=== PATIENT | female | born 2000 | race Caucasian/White ===

== ENCOUNTER 2020-06-10 19:27 | Emergency (ER) | payer OTHER ==
[~2020-06-10] VITALS: Ht 157.5 cm; Wt 68.0 kg
[2020-06-10 19:35] VITALS: BP 128/76
--- NOTE | 2020-06-10 19:35 | NUR ---
19 y/o female presented to the ED c/o 03/31 right nipple pain that doesn't radiate, it is localized and continuous x1 week and worsened today. Pt states that she had a nipple piercing an removed it 2 months ago. Pt stated that she had a bump on her right nipple and today it had had a white head appear. Pt denies taking any medication. Pt is sitting upright in bed, bed is locked and in lowest position. PMH: none NKA
--- NOTE | 2020-06-10 19:52 | NUR ---
PIERRE PERLA AT BEDSIDE FOR MEDICAL EVALUATION.
--- NOTE | 2020-06-10 19:56 | NUR ---
Female Parent Trainer accompanied female patient for breast exam administered by PIERRE Domínguez.
[2020-06-10 20:15] VITALS: BP 128/76
--- NOTE | 2020-06-10 20:15 | NUR ---
Patient discharged with v/s stable. Written and verbal after care instructions given and explained. Patient alert, oriented and verbalized understanding of instructions. Ambulatory with steady gait. All questions addressed prior to discharge. ID band removed. Patient advised to follow up with PMD. Rx of BACTRIN & IBUPROFEN given. Patient educated on indication of medication including possible reaction and side effects. Opportunity to ask questions provided and answered.
== END 2020-06-10 20:15 | disposition home or self-care (01) ==
LOC: MED 19:27
DX: N61.1 Abscess of the breast and nipple (principal)
CPT/HCPCS: 99283

== ENCOUNTER 2020-11-13 06:30 | Emergency (ER) | payer OTHER ==
[~2020-11-13] VITALS: Ht 160 cm; Wt 66.2 kg
[2020-11-13 06:39] VITALS: BP 108/62
--- NOTE | 2020-11-13 06:39 | NUR ---
TO BED AMBULATORY
[2020-11-13] MEDS ORDERED: ONDANSETRON 4 MG ODT PO ONE (06:50)
--- NOTE | 2020-11-13 06:50 | NUR ---
PATIENT BIB SELF C/O N/V THAT BEGAN AT 0000 FOLLOWING EATING TACOS AT 2300 YESTERDAY. PATIENT DENIES PAIN AT THIS MOMENT. PATIENT STATES "I WAS THROWING UP YELLOW AND THAT HAPPENED WHEN I WAS BEFORE". PER PATIENT SHE HAS AN IUD PLACED. BOWEL SOUNDS ACTIVE X 4, ABDOMEN IS SOFT, NONTENDER TO TOUCH. SEE COMPLETE ASSESSMENT FOR FURTHER DETAILS. ALLERGIES: NKA
--- NOTE | 2020-11-13 06:51 | NUR ---
PATIENT AMBULATING TO RESTROOM TO COLLECT UA.
--- NOTE | 2020-11-13 07:12 | NUR ---
REPORT RECIEVED FROM LINSEY WOODARD. TRANSFER OF CARE AT THIS TIME.
--- NOTE | 2020-11-13 07:12 | NUR ---
REPORT GIVEN TO LINSEY SMITH AND LINSEY SHIN FOR TRANSFER OF CARE.
--- NOTE | 2020-11-13 07:14 | NUR ---
CALLED LAB TO OBTAIN CBC/CMP, STATED THAT BAKER APPRENTICE WAS UNAVAILABLE.
--- NOTE | 2020-11-13 07:30 | NUR ---
PT VOMITTED X1 AFTER SUBLINGUAL ZOFRAN, PROVIDER NOTIFIED AND NEW ORDER PLACED.
--- NOTE | 2020-11-13 07:30 | NUR ---
TAYLER GARCIA SAID TO CANCEL BLOOD ORDER.
[2020-11-13] MEDS ORDERED: NACL 0.9% 1,000 ML IV ONE (07:45)
[2020-11-13] MEDS ORDERED: ONDANSETRON 4 MG/2 ML VIAL IVP ONE (07:45)
--- NOTE | 2020-11-13 07:45 | NUR ---
PROVIDER EVALUATING PT AT BEDSIDE.
[2020-11-13] MEDS ORDERED: CIPR500T4 PO (08:00)
[2020-11-13] MEDS ORDERED: IBUP-2213 PO (08:00)
[2020-11-13] MEDS ORDERED: ONDA8TAB87 PO (08:00)
--- NOTE | 2020-11-13 08:20 | NUR ---
PT DENIES N/V AND PAIN. SHE IS COMFORTABLY LAYING IN THE LOCKED BED AT THE LOWEST POSITION X1 RAIL IN NO ACUTE DISTRESS. IV SITE PATENT NO SIGNS OF PHLEBITIS, INFECTION, REDNESS OR C/O PAIN. WILL CONTINUE TO MONITOR.
[2020-11-13 08:50] VITALS: BP 98/58
--- NOTE | 2020-11-13 08:50 | NUR ---
Patient discharged with v/s stable. Written and verbal after care instructions given and explained. Patient alert, oriented and verbalized understanding of instructions. Ambulatory with steady gait. All questions addressed prior to discharge. ID band removed. Patient advised to follow up with PMD. Rx of ibuprofen, ciprofloxacin, zofran given. Patient educated on indication of medication including possible reaction and side effects. Opportunity to ask questions provided and answered.
--- NOTE | 2020-11-13 08:50 | NUR ---
Patient discharged with v/s stable. Written and verbal after care instructions given and explained. Patient alert, oriented and verbalized understanding of instructions. Ambulatory with steady gait. All questions addressed prior to discharge. ID band removed. Patient advised to follow up with PMD. Rx of IBUPROFEN, CIPRO, ZOFRAN given. Patient educated on indication of medication including possible reaction and side effects. Opportunity to ask questions provided and answered.
== END 2020-11-13 08:50 | disposition home or self-care (01) ==
LOC: MED 06:30
DX: R11.2 Nausea with vomiting, unspecified (principal); N39.0 Urinary tract infection, site not specified; R10.13 Epigastric pain
CPT/HCPCS: 81002; 81025; 96361; 96374; 99283; J2405; J7030; Q0162